=== PATIENT | female | born 1985 | race Caucasian/White ===

== ENCOUNTER 2022-10-25 13:23 | Inpatient (IN) ==
--- NOTE | 2022-10-25 13:52 | History & Physical Report ---
Date of Service October 25, 2022 Assessment & Plan (1) Encounter for induction of labor: Plan: Patient is a 37 yo at 37 5/7 WGA presenting to labor and delivery for induction d/t PROM. Blood type: O+, GBS neg, rubella immune Plan to start oxytocin; membranes already ruptured Proceed with labor and vaginal delivery (2) PROM (premature rupture of membranes): Admission and Anticipated Discharge Date Admission Date: October 25, 2022 History of Present Illness Chief Complaint: PROM Primary Care Provider: NO PCP Patient is a 37 yo female currently at 37 5/7 WGA with an CORDELIA 11/10/2022 as determined by LMP who is here at the recommendation of the OB office due to ruptured membranes. She first noticed leaking of fluid ~8 AM this morning. Her was complicated by AMA but otherwise uncomplicated. mild, nontimeable contractions; movement present; + fluid loss; - bloody show External FHT and external uterine monitors used; category 1 tracing; normal FHT variability Had regular appointments with OB; she did transfer OB care midpregnancy (at 15+ weeks) from [place]. Labs: (04/07/2022 from outside records) Blood type: O+ Antibody screen: neg Rubella: immune VDRL/RPR: neg Gonorrhea: neg Chlamydia: neg HIV: neg HbSAg: neg GBS: neg Hgb, Hct, WBC, Plt from today pending Other screens: cff-DNA: low risk (see scanned documents) CF: neg (03/15/2018) SMA: neg (03/15/2018) Allergies Allergy/AdvReac Type Severity Reaction Status Date / Time amoxicillin Allergy Mild Hives Verified 10/25/22 12:58 Home Medications Medication Instructions Recorded Confirmed Type prenat.vits,luis,vrg-bqoi-mjazu 1 tab PO DAILY 05/24/22 10/25/22 History Patient History Medical History (Updated 10/25/22 @ 13:58 by Polly Paulino DO) History of chicken pox Surgical History S/P wisdom tooth extraction Family History Uncle Colorectal cancer Grandmother (Maternal) Uterine cancer Mother Hypothyroid Father Hypertension Denies family history of Breast cancer Social History (Updated 10/25/22 @ 13:49 by Chrissy Mejia, GIOVANNY) Smoking Status: Never smoker Do You Dip or Chew Tobacco: No; Hx Alcohol Use: No Hx Substance Use: No Preferred Language: Indonesian Communication Ability: Effective Youth Development Specialist Required: No Beliefs That Will Affect Care: None marital status: marital status details: Garrison Jackson (38) [phone] Current Living Situation: Spouse and Family Current Living Situation Comment: lives with spouse, daughter, cats-spouse changing litter current occupational status: employed 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 Denies SOB, difficulty breathing, chest pain, palpitations, and chest pressure. Denies breast pain. Denies dysuria. Denies headache or changes in vision. Physical Exam Physical Exam: General: Alert and oriented. No acute distress Abdomen: Gravid Pelvic: Dilated 4 cm; Effacement 80; Station -[address] Love Genitourinary: OB Exam Abdomen: + vertex, + estimated weight (5-6 pounds) and + irregular contractions Manual OB Exam: + amniotic fluid clear (grossly ruptured) OB Exam Monitor Tracing: + external FHT monitor used, + external uterine monitor used, + category I and + normal FHT variability Results & Data Vital Signs (Past 12 Hours) Vital Signs Pulse BP 10/25/22 13:37 83 142/84 H Supervising Physician Co-Signing Physician Notes Resident Physician Supervision Note: I interviewed and examined the patient. Discussed with Dr. Paulino and agree with findings and plan as documented in the note. Any exceptions or clarifications are listed here: Small forebag ruptured for a small amount of clear fluid. Documented By: Li Ahn MD, FACOG Resident Activity Tracking Resident Involvement: Resident Care Provided Care Provided: OB Delivery
[2022-10-25] MEDS ORDERED: OXYTOCIN 30 UNITS/500 ML BAG IV PRN ×3 (14:20→19:31)
[2022-10-25] MEDS ORDERED: LIDOCAINE 1% LOCAL 20 ML VIAL INFIL PRN (14:20)
[2022-10-25] MEDS: LACTATED RINGER'S 1,000 ML IV PRN ×2 (14:50→18:55)
[2022-10-25 15:07] LABS: Hematocrit (blood only) 38.2 % (37.0-47.0); Hemoglobin 13.2 g/dl (12.0-16.0); Mean Corpuscular Hgb Conc 34.6 g/dL (32.0-36.0); Mean Corpuscular Volume 92.5 fL (80.0-100.0); Mean Platelet Volume 10.3 fL (9.4-12.4); Platelet Count 251 K/uL (130-400); RDW Coefficient of Variation 12.9 % (11.5-14.5); RDW Standard Deviation 43.6 fL (36.4-46.3); Red Blood Count 4.13 M/uL (4.20-5.40); White Blood Count 8.06 K/ul (4.8-10.8)
[2022-10-25] MEDS ORDERED: ePHEDrine sulfate 50 MG/ML AMP ONE (18:29)
[2022-10-25] MEDS ORDERED: fentaNYL citrate PF 100 MCG/2 ML VIAL ONE (18:29)
[2022-10-25] MEDS ORDERED: SODIUM CHLORIDE 0.9% PF INJ 10 ML VIAL ONE (18:29)
[2022-10-25] MEDS ORDERED: BUPIVACAINE 0.25% PF 30 ML VIAL ONE (18:29)
[2022-10-25] MEDS ORDERED: LIDOCAINE 2%/EPINEPHRINE 1:200,000 20 ML PF ONE (18:29)
[2022-10-25] MEDS ORDERED: fentaNYL 2MCG/ML ROPIVACAINE 1.25MG/ML 100 ML BAG EPI ONE (18:30)
--- NOTE | 2022-10-25 19:03 | Anesthesiology Consultation ---
Date of Service October 25, 2022 Assessment & Plan Chart Review Chart Review: Patient NOT seen in Pre Admission Testing and Acceptable Risk for Labor Epidural Consults Requested none ASA ASA2 Proposed Anesthesia Anesthesia Type: Labor Epidural Risk / Benefits Reviewed With: PT / POA / Parent / Guardian, Accepts Plan and Informed Consent Obtained History Height/Weight Height: 5 ft 7 in Weight: 74.389 kg Allergies Allergy/AdvReac Type Severity Reaction Status Date / Time amoxicillin Allergy Mild Hives Verified 10/25/22 12:58 Medications Home Medications Medication Instructions Recorded Confirmed Last Taken prenat.vits,luis,zps-ffue-pwfkj 1 tab PO DAILY 05/24/22 10/25/22 10/25/22 Active Medications Generic Name Dose Route Start Last Admin Trade Name Freq PRN Reason Stop Dose Admin Lactated Ringer's 1,000 mls @ 125 mls/hr 10/25/22 14:20 10/25/22 18:55 Lr IV 10/27/22 14:19 999 mls/hr .Q8H PRN Administration L&D Protocol Protocol Oxytocin 30 units in 500 mls @ 7 mls/hr 10/25/22 14:20 10/25/22 17:40 Pitocin IV 10/27/22 14:19 0.42 units/hr .Q24H PRN 7 mls/hr Labor Induction/Augmentation Titration Protocol 0.42 UNITS/HR Past Medical History Medical History (Updated 10/25/22 @ 13:58 by Polly Paulino DO) History of chicken pox Exercise / Class Metabolic Activity II 4-5 Yardwork/Stairs/Walk up hill Past Family History Family History Uncle Colorectal cancer Grandmother (Maternal) Uterine cancer Mother Hypothyroid Father Hypertension Denies family history of Breast cancer Past Surgical History Surgical History S/P wisdom tooth extraction Past Anesthesia History No Hx of Anesthesia Complications and No Family Hx of Anesthesia Complications History of PONV No Hx of PONV and No Hx of Motion Sickness Social History Smoking Status: Never smoker Do You Dip or Chew Tobacco: No Hx Alcohol Use: No Hx Substance Use: No Physical Exam Vital Signs Last Vital Signs Temp 36.7 C 10/25/22 18:00 Pulse 73 10/25/22 19:00 Resp 18 10/25/22 18:31 BP 158/101 H 10/25/22 19:00 Pulse Ox 100 10/25/22 19:00 ENMT Mouth: no dentition abnormality Thyromental Distance: > or= 3.5 Finger Breadths Mallampati Class: II Neck normal visual inspection Respiratory normal respiratory effort Auscultation: lungs clear to auscultation bilaterally Cardiovascular Rate/Rhythm: regular rate and regular rhythm Psychiatric Orientation: alert Testing Laboratory Results 10/25/22 14:42
[2022-10-25] MEDS ORDERED: LIDOCAINE 2% MPF LOCAL 5 ML VIAL EPI PRN (19:04)
[2022-10-25] MEDS ORDERED: fentaNYL 2MCG/ML ROPIVACAINE 1.25MG/ML 100 ML BAG EPI PRN (19:04)
[2022-10-25] MEDS ORDERED: ONDANSETRON INJ 2 MG/ML 2 ML VIAL IV PRN (19:04)
[2022-10-25] MEDS ORDERED: diphenhydrAMINE 50 MG/ML VIAL IV PRN (19:04)
[2022-10-25] MEDS ORDERED: NALOXONE HCL 1 MG in SODIUM CHLORIDE 0.9% 1000ML 1,000 ML IV PRN (19:04)
[2022-10-25] MEDS ORDERED: fentaNYL citrate PF 100 MCG/2 ML VIAL EPI PRN (19:04)
[2022-10-25] MEDS ORDERED: LIDOCAINE 2%/EPINEPHRINE 1:200,000 20 ML PF EPI STA (19:04)
[2022-10-25] MEDS ORDERED: NALBUPHINE HCL INJ 10 MG/ML AMP IV PRN (19:04)
[2022-10-25] MEDS ORDERED: NALOXONE HCL 0.4 MG/1 ML VIAL/CARP IV PRN (19:04)
[2022-10-25] MEDS ORDERED: ePHEDrine sulfate 50 MG/ML AMP IV PRN (19:04)
[2022-10-25] MEDS ORDERED: fentaNYL citrate PF 100 MCG/2 ML VIAL EPI STA (19:04)
[2022-10-25] MEDS ORDERED: BUPIVACAINE 0.25% PF 30 ML VIAL EPI PRN (19:04)
[2022-10-25] MEDS ORDERED: ROPIVACAINE 0.5% PF 5 MG/ML 20 ML VIAL EPI PRN (19:04)
[2022-10-25] MEDS ORDERED: SODIUM CHLORIDE 0.9% PF INJ 10 ML VIAL EPI PRN (19:04)
[2022-10-25] MEDS ORDERED: SODIUM CHLORIDE 0.9% PF INJ 10 ML VIAL EPI STA (19:04)
[2022-10-25] MEDS ORDERED: BUPIVACAINE 0.25% PF 30 ML VIAL EPI STA (19:04)
--- NOTE | 2022-10-25 19:14 | Anesthesia Procedure Note ---
Date of Service October 25, 2022 Anesthesia Post Epidural Note Vital Signs Vital Signs: Temp Pulse Resp BP Pulse Ox 36.7 C 76 18 126/67 97 10/25/22 18:00 10/25/22 19:10 10/25/22 18:31 10/25/22 19:09 10/25/22 19:10 Notes Mental Status: alert / awake / arousable Nausea / Vomiting: adequately controlled Pain: adequately controlled Airway Patency, RR, SpO2: stable & adequate BP & HR: stable & adequate Hydration State: stable & adequate Neuraxial Anesthesia: was administered and sensory block is resolving Anesthetic Complications: no major complications apparent and Pt Satisfied with anesthetic care Epidural: Removed without complications and With tip intact
[2022-10-25] MEDS ORDERED: bisacodyL 10 MG SUPP PR PRN (19:31)
[2022-10-25] MEDS ORDERED: BENZOCAINE 20% AER SPR 82.5 GM CAN EXT PRN (19:31)
[2022-10-25] MEDS ORDERED: IBUPROFEN 600 MG TAB PO PRN (19:31)
[2022-10-25] MEDS ORDERED: HYDROCORTISONE ACETATE 25 MG SUPP PR PRN (19:31)
[2022-10-25] MEDS ORDERED: ceFAZolin 1000MG 1,000 MG/7.5 ML SYR IV ONE (19:31)
[2022-10-25] MEDS ORDERED: oxyCODONE/ACETAMINOPHEN 5mg/325mg TAB PO PRN (19:31)
[2022-10-25] MEDS ORDERED: ACETAMINOPHEN 325 MG TAB PO PRN (19:31)
[2022-10-25] MEDS ORDERED: DIPHTHERIA/TETANUS/PERTUSSIS Vaccine (Tdap, Age 7+yrs) 0.5mL SYR/VL IM ONE (19:31)
--- NOTE | 2022-10-25 19:39 | Delivery Summary ---
Vaginal Delivery Summary Date of Service October 25, 2022 Vaginal Delivery Summary [facility] Patient is a 37-year-old 2 para 1-0-0-1 female EDC of 11/10/2022 who presents at 37-5/7 weeks with spontaneous rupture membranes for clear fluid. She had no spontaneous onset of labor therefore Pitocin augmentation was begun. She requested epidural analgesia which was given just shortly before she was noted to be fully dilated. She pushed effectively over intact perineum for delivery of a viable female infant. The infant was vigorous and crying upon delivery. After the head was delivered the rest the delivered easily and was placed on the mother's abdomen for further attention and drying. After approximately 1 minute the cord was clamped and cut. After cord blood was obtained, the placenta was expressed intact except for what appeared to be 2 cm defect on the peripheral edge of the placenta. Manual exploration of the uterine cavity revealed no retained tissue. This was able to be done thoroughly because the epidural analgesia was now effective. She was given 1 g of Ancef IV. Perineum was intact. bleeding was controlled with dilute Pitocin and fundal massage. Estimated blood loss 200 cc. Mother and infant were doing well after delivery. [facility] [place] Vaginal Delivery Charge Delivery Type Details: [facility]
[2022-10-25] MEDS: DOCUSATE SODIUM 100 MG CAP PO SCH (21:17)
--- NOTE | 2022-10-26 06:11 | Obstetrical Progress Note ---
Date of Service <Polly Chatterjeejaspreet - Last Filed: 10/26/22 07:08> October 26, 2022 Assessment & Plan <Polly Chatterjeejose danieltracy - Last Filed: 10/26/22 07:08> (1) care following vaginal delivery: Patient is PPD 1 s/p and doing well. - Eating well, voiding well, ambulating well - Vitals reviewed and within normal limits - Pain well controlled with analgesics - OOB, ambulation, diet progression as tolerated - Blood type: O+, GBS neg, rubella immune - Plan to discharge today - After discharge, [address] follow up [address] Dr[address] Love <Whit Brown MD, FACOG - Last Filed: 10/26/22 08:51> (1) care following vaginal delivery: Subjective <Polly Chatterjeejose danieltracy - Last Filed: 10/26/22 07:08> Patient is a 37 yo female who is now PPD #1 following spontaneous vaginal delivery at 37 5/7 weeks. Reports feeling well this morning. She denies abdominal cramping. Voiding without issue. Tolerating regular meals overnight and able to ambulate some. She has passed gas. Persistent lochia with some improvement this morning. Currently breast feeding. Review of Systems Denies fever, chills, sweats. Denies SOB, difficulty breathing, chest pain, palpitations, and chest pressure. Denies breast pain. Denies dysuria. Denies headache or changes in vision. Physical Exam <Polly ChatterjeeDO jaspreet - Last Filed: 10/26/22 07:08> General: Alert and oriented. No acute distress. CV: Regular rate and rhythm. No murmurs. Respiratory: CTA bilaterally. No rhonchi, wheezes, or crackles. No increased work of breathing. Abdomen: Positive bowel sounds. Soft, nontender, non distended. Uterus: Fundus firm and palpable 4 cm below the umbilicus. Lower extremities: No LE edema. No deep calf pain. Results & Data <Polly ChatterjeeDO jaspreet - Last Filed: 10/26/22 07:08> Vital Signs (Past 12 Hours) Vital Signs Temp Pulse Pulse Resp BP BP Pulse Ox 10/26/22 03:45 36.4 C L 65 16 126/80 97 10/26/22 00:20 36.6 C 67 16 138/86 99 10/26/22 00:00 36.7 C 16 10/25/22 21:16 36.8 C 18 10/25/22 20:45 18 10/25/22 20:15 16 10/25/22 20:00 18 10/25/22 19:45 16 10/25/22 19:30 18 10/25/22 19:16 37.0 C 16 10/25/22 22:45 86 10/25/22 22:45 132/73 10/25/22 22:30 83 10/25/22 22:30 128/73 10/25/22 22:15 81 10/25/22 22:15 133/77 10/25/22 22:00 84 10/25/22 22:00 119/71 10/25/22 21:45 81 10/25/22 21:45 121/71 10/25/22 21:30 80 10/25/22 21:30 123/74 10/25/22 21:16 75 10/25/22 21:16 137/66 10/25/22 21:01 74 10/25/22 21:01 149/68 H 10/25/22 20:46 73 10/25/22 20:46 118/74 10/25/22 20:30 64 10/25/22 20:30 116/59 L 10/25/22 20:15 69 10/25/22 20:15 117/56 L 10/25/22 20:01 67 10/25/22 20:01 115/57 L 10/25/22 19:45 67 10/25/22 19:45 117/63 10/25/22 19:30 77 10/25/22 19:30 117/57 L 10/25/22 19:15 100 10/25/22 19:15 72 10/25/22 19:16 74 10/25/22 19:16 113/54 L 10/25/22 19:10 97 10/25/22 19:10 76 10/25/22 19:09 98 H 10/25/22 19:09 126/67 10/25/22 19:08 88 L 10/25/22 19:08 72 10/25/22 19:05 100 10/25/22 19:05 65 05/17/23 19:04 69 10/25/22 19:04 158/67 H 10/25/22 19:03 67 10/25/22 19:03 166/72 H 10/25/22 19:02 93 10/25/22 19:02 70 10/25/22 19:00 100 10/25/22 19:00 73 10/25/22 19:00 158/101 H 10/25/22 18:55 100 10/25/22 18:55 67 10/25/22 18:50 100 10/25/22 18:51 92 10/25/22 18:50 70 10/25/22 18:51 74 10/25/22 18:45 100 10/25/22 18:45 63 10/25/22 18:40 100 10/25/22 18:40 59 L 10/25/22 18:35 100 10/25/22 18:35 55 L 10/25/22 18:31 18 10/25/22 18:31 18 10/25/22 18:31 58 L 10/25/22 18:31 147/71 H 10/25/22 18:30 100 10/25/22 18:30 61 O2 Del Method 10/26/22 03:45 Room Air 10/26/22 00:20 Room Air 10/26/22 00:00 10/25/22 21:16 10/25/22 20:45 10/25/22 20:15 10/25/22 20:00 10/25/22 19:45 10/25/22 19:30 10/25/22 19:16 10/25/22 22:45 10/25/22 22:45 10/25/22 22:30 10/25/22 22:30 10/25/22 22:15 10/25/22 22:15 10/25/22 22:00 10/25/22 22:00 10/25/22 21:45 10/25/22 21:45 10/25/22 21:30 10/25/22 21:30 10/25/22 21:16 10/25/22 21:16 10/25/22 21:01 10/25/22 21:01 10/25/22 20:46 10/25/22 20:46 10/25/22 20:30 10/25/22 20:30 10/25/22 20:15 10/25/22 20:15 10/25/22 20:01 10/25/22 20:01 10/25/22 19:45 10/25/22 19:45 10/25/22 19:30 10/25/22 19:30 10/25/22 19:15 10/25/22 19:15 10/25/22 19:16 10/25/22 19:16 10/25/22 19:10 10/25/22 19:10 10/25/22 19:09 10/25/22 19:09 10/25/22 19:08 10/25/22 19:08 10/25/22 19:05 10/25/22 19:05 10/25/22 19:04 10/25/22 19:04 10/25/22 19:03 10/25/22 19:03 10/25/22 19:02 10/25/22 19:02 10/25/22 19:00 10/25/22 19:00 10/25/22 19:00 10/25/22 18:55 10/25/22 18:55 10/25/22 18:50 10/25/22 18:51 10/25/22 18:50 10/25/22 18:51 10/25/22 18:45 10/25/22 18:45 10/25/22 18:40 10/25/22 18:40 10/25/22 18:35 10/25/22 18:35 10/25/22 18:31 10/25/22 18:31 10/25/22 18:31 10/25/22 18:31 10/25/22 18:30 10/25/22 18:30 <Whit Brown MD, FACOG - Last Filed: 10/26/22 08:51> Co-Signing Physician Notes Resident Physician Supervision Note: I interviewed and examined the patient. Discussed with Dr. Paulino and agree with findings and plan as documented in the note. Any exceptions or clarifications are listed here: Doing well. Routine care. Would like d/c this evening. Documented By: Whit Brown MD, FACOG Resident Activity Tracking <Polly Paulino, DO - Last Filed: 10/26/22 07:08> Resident Involvement: Resident Care Provided Care Provided: OB Delivery
[2022-10-26 07:14] LABS: Hematocrit (blood only) 39.1 % (37.0-47.0); Hemoglobin 13.5 g/dl (12.0-16.0); Mean Corpuscular Hemoglobin 31.9 pg (25.0-34.0); Mean Corpuscular Hgb Conc 34.5 g/dL (32.0-36.0); Mean Corpuscular Volume 92.4 fL (80.0-100.0); Mean Platelet Volume 10.4 fL (9.4-12.4); Platelet Count 268 K/uL (130-400); RDW Standard Deviation 43.8 fL (36.4-46.3); Red Blood Count 4.23 M/uL (4.20-5.40); White Blood Count 15.92 K/ul (4.8-10.8)
[2022-10-26] MEDS ORDERED: PRENATAL VITAMIN 1 TAB PO SCH (08:00)
[2022-10-26] MEDS: DOCUSATE SODIUM 100 MG CAP PO SCH ×2 (08:47→20:01)
[2022-10-26] MEDS ORDERED: bisacodyL 5 MG TABEC PO SCH (20:00)
== END 2022-10-26 20:30 | disposition home or self-care (01) | DRG 807 ==
LOC: 4S1 13:23 → 4E2 10-26 00:32